=== PATIENT | male | born 1935 | race Caucasian/White ===

== ENCOUNTER 2017-11-13 16:19 | Outpatient (CLI) | payer MEDICARE | END 2017-11-13 23:59 | disposition home or self-care (01) | LOC: VAS 16:19 | PROVIDERS: ATTEND Specialist | DX: R60.0 Localized edema (principal); Z87.891 Personal history of nicotine dependence | CPT/HCPCS: 93970 ==

== ENCOUNTER 2019-04-20 09:26 | Emergency (ER) | payer MEDICARE ==
[~2019-04-20] VITALS: Ht 172.7 cm; Wt 80.0 kg
[2019-04-20 09:35] VITALS: BP 148/78
[2019-04-20] MEDS ORDERED: DICL100G15 TOP (11:06)
== END 2019-04-20 11:10 | disposition home or self-care (01) ==
LOC: ER 09:27
DX: M25.562 Pain in left knee (principal); G89.29 Other chronic pain; Z79.899 Other long term (current) drug therapy
CPT/HCPCS: 29505; 73564; 99283

== ENCOUNTER 2020-10-06 11:49 | Emergency (ER) | payer MEDICARE ==
[~2020-10-06] VITALS: Ht 177.8 cm; Wt 61.0 kg
[~2020-10-06 11:49] MED LIST: DICL100G15 TOP
[2020-10-06 11:57] VITALS: BP 142/71
[2020-10-06] MEDS ORDERED: DOXY100C43 PO (13:19)
== END 2020-10-06 13:30 | disposition home or self-care (01) ==
LOC: ER 11:49
DX: R60.0 Localized edema (principal); L03.116 Cellulitis of left lower limb; M79.672 Pain in left foot; G89.29 Other chronic pain; Z79.2 Long term (current) use of antibiotics; Z79.899 Other long term (current) drug therapy
CPT/HCPCS: 93971; 99284